=== PATIENT | male | born 1985 | race Caucasian/White ===

== ENCOUNTER 2021-02-16 12:56 | Outpatient (CLI) | payer BC, SELFPAY ==
[2021-02-16 13:36] LABS: Basophils Absolute Auto 0.1 K/mm3 (0.0-0.1); Basophils Percent Auto 0.4 % (0.2-1.2); Eosinophils Absolute Auto 0.1 K/mm3 (0-0.3); Eosinophils Percent Auto 0.4 % (0-4.4); Hematocrit 41.7 % (42.0-52.0); Hemoglobin 14.5 g/dL (14.0-18.0); Immature Granulocyte Absolute 0.05 K/mm3 (0.00-0.031); Immature Granulocyte Percent A 0.4 % (0-0.5); Lymphocytes Absolute Auto 1.73 K/mm3 (0.9-3.2); Lymphocytes Percent Auto 13.1 % (18.3-44.2); Mean Corpuscular HGB Conc 34.8 g/dl (32-36); Mean Corpuscular Hemoglobin 31.7 pg (26-34); Mean Corpuscular Volume 91.2 fl (80-100); Mean Platelet Volume 9.7 fl (7.4-10.4); Monocytes Absolute Auto 0.3 K/mm3 (0.1-0.6); Monocytes Percent Auto 2.4 % (2.6-8.5); Neutrophils Percent Auto 83.3 % (45.5-73.1); Platelet Count Result 287 k/mm3 (150-375); Red Blood Count 4.57 M/mm3 (4.6-6.20); Red Cell Distribution Width 13.2 % (11.5-14.5); White Blood Count 13.2 K/mm3 (4.5-10.0)
[2021-02-16 13:45] LABS: Alanine Aminotransferase 48 U/L (4-50); Albumin Level 4.6 g/dL (3.5-5.1); Alkaline Phosphatase 77 U/L (38-126); Anion Gap 6 mmol/L (8-16); Aspartate Amino Transferase 31 U/L (17-59); Bilirubin,Total 0.8 mg/dL (0.2-1.3); Blood Urea Nitrogen 10 mg/dL (9-20); Calcium 9.1 mg/dL (8.4-10.2); Carbon Dioxide 26 mmol/L (22-30); Chloride 101 mmol/L (98-107); Estimated Glomerular Filt Rate > 60; Glucose 144 mg/dL (65-110); Potassium 3.8 mmol/L (3.4-5.0); Sodium 133 mmol/L (137-145)
[2021-02-16 14:00] LABS: Erythrocyte Sedimentation Rate 16 mm/hr (0-20)
[2021-02-23 20:25] LABS: ANCA Screen Negative (Negative)
== END 2021-02-16 12:57 | disposition home or self-care (01) ==
LOC: ANHLAB 13:05
PROVIDERS: PCP Family Medicine
DX: L98.2 Febrile neutrophilic dermatosis [Sweet] (principal)
CPT/HCPCS: 36415; 80053; 85025; 85652; 86021; 86038

== ENCOUNTER 2023-10-12 09:07 | Outpatient (CLI) | payer OTHER, SELFPAY ==
--- NOTE | ~2023-10-12 | XR_ITS ---
XR hip RT min 2V 10/12/2023 09:26 Indication: Chronic right hip pain Procedure: 2 views right hip Comparison: No prior studies for comparison. Findings: There is mild osteoarthritis of the right hip. No fracture or traumatic malalignment. No so ft tissue abnormality. No foreign bodies. Impression: 1: Mild osteoarthritis of the right hip. Reviewed, dictated and finalized at location B. Impression: 1: Mild osteoarthritis of the right hip.
[2023-10-12 09:48] LABS: Basophils Absolute Auto 0.1 K/mm3 (0.0-0.1); Basophils Percent Auto 1.3 % (0.2-1.2); Eosinophils Absolute Auto 0.4 K/mm3 (0-0.3); Immature Granulocyte Absolute 0.02 K/mm3 (0.00-0.031); Immature Granulocyte Percent A 0.2 % (0-0.5); Lymphocytes Absolute Auto 2.28 K/mm3 (0.9-3.2); Lymphocytes Percent Auto 24.3 % (18.3-44.2); Mean Corpuscular Hemoglobin 32.3 pg (26-34); Mean Corpuscular Volume 92.2 fl (80-100); Mean Platelet Volume 9.7 fl (7.4-10.4); Monocytes Absolute Auto 0.5 K/mm3 (0.1-0.6); Monocytes Percent Auto 5.6 % (2.6-8.5); Neutrophils Absolute Auto 6.1 K/mm3 (1.3-6.7); Neutrophils Percent Auto 64.6 % (45.5-73.1); Platelet Count Result 259 k/mm3 (150-375); Red Blood Count 4.34 M/mm3 (4.6-6.20); Red Cell Distribution Width 13.4 % (11.5-14.5); White Blood Count 9.4 K/mm3 (4.5-10.0)
[2023-10-12 10:02] LABS: Alanine Aminotransferase 51 U/L (6-50); Albumin Level 4.8 g/dL (3.5-5.1); Alkaline Phosphatase 63 U/L (38-126); Anion Gap 13 mmol/L (4-12); Aspartate Amino Transferase 63 U/L (17-59); Bilirubin,Total 0.6 mg/dL (0.2-1.3); Blood Urea Nitrogen 10 mg/dL (9-20); Calcium 9.4 mg/dL (8.4-10.2); Carbon Dioxide 26 mmol/L (22-30); Chloride 99 mmol/L (98-107); Cholesterol 178 mg/dL (0-200); Estimated Glomerular Filt Rate > 60; Glucose 111 mg/dL (65-110); HDL Direct 31 mg/dL; Sodium 138 mmol/L (137-145); Triglycerides 209 mg/dL (<150)
[2023-10-12 10:13] LABS: LDL Cholesterol Direct 95 mg/dL
[2023-10-12 17:13] LABS: Hemoglobin A1C 5.6 % (<5.7)
== END 2023-10-12 09:08 | disposition home or self-care (01) ==
PROVIDERS: PCP Family Medicine
DX: Z13.0 Encounter for screening for diseases of the blood and blood-forming organs and certain disorders involving the immune mechanism (principal); E78.5 Hyperlipidemia, unspecified; Z13.29 Encounter for screening for other suspected endocrine disorder; Z86.39 Personal history of other endocrine, nutritional and metabolic disease; M16.11 Unilateral primary osteoarthritis, right hip
CPT/HCPCS: 36415; 73502; 80053; 80061; 83036; 84443; 85025

== ENCOUNTER 2023-11-16 09:56 | Outpatient (CLI) | payer OTHER, SELFPAY ==
--- NOTE | ~2023-11-16 | XR_ITS ---
3 VIEWS LUMBAR SPINE Ordering provider: June Gutierres NP History: . LOW BACK PAIN . Comparison: None. FINDINGS: VERTEBRAL BODIES:Spondylolysis at the level of L5-S1. No visible fracture or subluxation. DISK SPACES: Normal. SOFT TISSUES: Normal. IMPRESSION: No acute osseous abnormality lumbar spine. Spondylolysis at the level of L5-S1. Reviewed, dictated and finalized at location A.
[2023-11-16 11:29] LABS: Alanine Aminotransferase 70 U/L (6-50); Albumin Level 4.7 g/dL (3.5-5.1); Alkaline Phosphatase 67 U/L (38-126); Anion Gap 10 mmol/L (4-12); Aspartate Amino Transferase 64 U/L (17-59); Bilirubin,Total 0.6 mg/dL (0.2-1.3); Blood Urea Nitrogen 11 mg/dL (9-20); Calcium 9.4 mg/dL (8.4-10.2); Carbon Dioxide 28 mmol/L (22-30); Chloride 101 mmol/L (98-107); Estimated Glomerular Filt Rate > 60; Glucose 104 mg/dL (65-110); Potassium 3.4 mmol/L (3.4-5.0); Sodium 139 mmol/L (137-145)
== END 2023-11-16 09:57 | disposition home or self-care (01) ==
PROVIDERS: PCP Family Medicine
DX: R74.8 Abnormal levels of other serum enzymes (principal); M47.897 Other spondylosis, lumbosacral region
CPT/HCPCS: 36415; 72100; 80053

== ENCOUNTER 2024-06-21 07:55 | Outpatient (CLI) | payer OTHER, SELFPAY ==
--- NOTE | ~2024-06-21 | MR_ITS ---
MRI of the lumbar spine Clinical History: Pain Technique: Axial T2-weighted images, and sagittal T1-weighted, T2-weighted, and T2 fat-sat images wer e acquired. Findings: There is no fracture or subluxation of lumbar spine. Vertebral bodies maintain normal heigh t and alignment. No suspicious bone marrow signal abnormality seen. At L1-L2, there is no disc bulge or herniation. There is moderate facet joint hypertrophy. No spinal canal stenosis or neural foraminal narrowing. At L2-L3, there is no disc bulge or herniation. There is moderate facet arthropathy. No central canal stenosis or neural foraminal narrowing. At L3-L4, there is no disc bulge or herniation. There is mild facet arthropathy. No central canal manny nosis or neural foraminal narrowing. At L4-L5, there is disc desiccation with central to right paracentral disc protrusion. There is mild facet arthropathy. There is minimal thecal sac compression. There is moderate left neural foraminal n arrowing, and minimal right neural foraminal narrowing. At L5-S1, there is no disc bulge or herniation. There is moderate facet arthropathy. No central canal stenosis or neural foraminal narrowing. Paravertebral soft tissues are unremarkable. Impression: Moderate degenerative spondylitic changes at L4-L5, as detailed above. Minimal degenerative change in the remainder of the lumbar spine. Reviewed, dictated and finalized at [facility]. Impression: Moderate degenerative spondylitic changes at L4-L5, as detailed above. Minimal degenerative change in the remainder of the lumbar spine.
== END 2024-06-21 07:56 | disposition home or self-care (01) ==
PROVIDERS: PCP Family Medicine
DX: M54.41 Lumbago with sciatica, right side (principal); G89.29 Other chronic pain; M47.896 Other spondylosis, lumbar region
CPT/HCPCS: 72148